=== PATIENT | female | born 1970 | race Caucasian/White ===

== ENCOUNTER 2020-07-11 09:27 | Outpatient (REF) | payer OTHER, SELFPAY ==
[2020-07-14 15:11] LABS: HPV mRNA E6/E7 rflx Not Detected (Not Detected)
== END 2020-07-11 09:28 | disposition home or self-care (01) ==
LOC: HO.LAB 09:27
PROVIDERS: PCP Internal Medicine; Visit Provider Advanced Practice Midwife
DX: Z01.419 Encounter for gynecological examination (general) (routine) without abnormal findings (principal); Z11.51 Encounter for screening for human papillomavirus (HPV); R23.2 Flushing
CPT/HCPCS: 87624; 88142

== ENCOUNTER 2022-12-25 08:00 | Outpatient (AMB) | payer OTHER, SELFPAY ==
--- NOTE | 2022-12-25 08:01 | A.OFFVIS_ITS ---
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 Scribed for KATHY Hubbard by Vianney Mike medical practice manager, on 12/25/2022 at 8:02 am, EST. Apprentice Instrument Technician: Apprentice Instrument Technician Present (Mayelin) Allergies No Known Allergies Allergy (Verified 12/25/22 08:03) Post menopausal: Yes HPI HPI Comments History of Present Illness Details She is a postmenopausal woman presenting for her annual obstetrician gynecologist examination. She is doing well with no concerns. Attempting to eat a healthy diet with calcium and vitamin D and stays active with exercise. She takes a vitamin suppliment. Currently sexually active. Confirms vaginal dryness. Denies any vaginal irritation. STI testing offered; she accepts. Last pap smear; 12/21/2021 Last mammogram; in 2021 at [facility] She reports the mammogram was normal. Colonoscopy is not UTD. Sister was recently diagnosed with breast cancer. Denies any family history of ovarian or colon cancer. 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 [facility] Surgical History Hx of wisdom tooth extraction Hx of adenoidectomy Hx of tonsillectomy Family History Maternal Grandmother Uterine cancer Maternal Aunt History of breast cancer Mother Uterine cancer Sister History of breast cancer BRCA negative Maternal Uncle Colon cancer Maternal Uncle Colon cancer Maternal Grandfather Bone cancer Cancer of kidney Social History Alcohol intake: never Patient Tobacco Use Status: Never used Tobacco Sexual orientation: Straight/Heterosexual Gender identity: Female Female Reproductive History Menstrual Age of Menarche: 13 Menopause type: natural Total pregnancies: 4 Full term: 4 Number of Living Children: 4 Date of last pap smear: 07/11/20 (neg pap and hpv) Date of Mammogram: 12/26/20 (Birad 1) Review of Systems Const All systems reviewed & are unremarkable except as noted in HPI and below Reports vaginal dryness Physical Exam Vital Signs: Last Vital Signs BP 120/80 12/25/22 08:03 BMI result Body Mass Index 26.4 Const General: cooperative, healthy appearing, no acute distress, well developed and alert Orientation/consciousness: patient oriented x3 HEENT Head: Yes normal to inspection Eyes General: appearance normal, both eyes and all related structures Neck Neck: Yes normal visual inspection Thyroid: Thyroid normal Chest Chest palpation & inspection: normal inspection of the chest Breast/axilla inspection: normal inspection of the breasts (no puckering, dimpling, peau de orange, retraction, discharge, masses) Breast/axilla palpation: normal palpation of the breasts Resp Effort & Inspection: normal respiratory effort GI Inspection: Yes normal to inspection Palpation (GI): Soft to palpation Rectal Exam - Female: deferred General: Yes bladder normal to inspection and Yes bladder normal to palpation External Female Exam: normal external appearance and normal appearance of the urethra Speculum Exam - Vagina: normal appearance of the vagina and normal palpation Speculum Exam - Cervix: normal palpation Bimanual exam- vagina & uterus: normal bimanual exam, normal palpation, uterine size normal, bladder normal to palpation and normal palpation Bimanual Exam- Adnexa, other: normal adnexae and no masses Skin General skin exam: no rashes or lesions noted Neuro General: patient oriented x3 Cognition (Neuro): normal cognition Extrem General: Yes normal to inspection Psych Attitude: cooperative Thought process: Normal thought process present Assessment & Plan Assessment & Plan (1) Encounter for annual routine gynecological examination: Code(s): Z01.419 - Encounter for gynecological examination (general) (routine) without abnormal findings Plan: Discussed: Current recommendations for pap smears per ASCCP guidelines. Breast awareness and periodic self breast exams. Encouraged yearly mammograms. I have placed an order for a mammogram. Maintaining a healthy lifestyle including a well balanced diet including Calcium and Vitamin D and routine exercise. Contact office with any PMB. Encouraged patient portal. All of her questions and concerns were addressed to the best of my ability. She will request her mammogram records from [facility] to be sent to our office. She will return in one year for AG. (2) Vaginal dryness: Code(s): N89.8 - Other specified noninflammatory disorders of vagina Plan: I educated the patient about using lubricant to aid with vaginal dryness. Orders: Orders MM tomosynthesis screening BI Today Z12.31 - Encounter for screening mammogram for malignant neoplasm of breast Coding Level of Care Code Est Pt Prev Care 40-64y(89561) Diagnoses Encounter for annual routine gynecological examination Z01.419 Vaginal dryness N89.8
[2022-12-25 08:03] VITALS: BP 120/80; BMI 26.4
== END 2022-12-25 08:41 | disposition home or self-care (01) ==
PROVIDERS: Visit Provider Advanced Practice Midwife
DX: Z01.419 Encounter for gynecological examination (general) (routine) without abnormal findings (principal); N89.8 Other specified noninflammatory disorders of vagina
CPT/HCPCS: 99396

== ENCOUNTER → 2022-12-25 08:00 | Outpatient (BNVA) | payer OTHER, SELFPAY | PROVIDERS: Visit Provider Advanced Practice Midwife ==

== ENCOUNTER 2024-01-20 08:12 | Outpatient (AMB) | payer OTHER, SELFPAY ==
--- NOTE | 2024-01-20 08:22 | A.OFFVIS_ITS ---
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 She is doing well with no concerns. Currently sexually active, uses a lubricant. Attempting to eat a healthy diet with calcium and vitamin D and stays active with exercise. Last pap smear; 2020. Last mammogram; 2023. Colonoscopy is UTD. [facility] Surgical History Hx of wisdom tooth extraction Hx of adenoidectomy Hx of tonsillectomy Family History Maternal Grandmother Uterine cancer Maternal Aunt History of breast cancer Mother Uterine cancer Sister History of breast cancer BRCA negative Maternal Uncle Colon cancer Maternal Uncle Colon cancer Maternal Grandfather Bone cancer Cancer of kidney Social History Alcohol intake: never Patient Tobacco Use Status: Never used Tobacco Sexual orientation: Straight/Heterosexual Gender identity: Female Female Reproductive History Menstrual Age of Menarche: 13 Menopause type: natural Date of menopause: 01/11/15 Total pregnancies: 4 Full term: 4 Number of Living Children: 4 History of abnormal pap smear: No History of STI: No Date of Mammogram: 11/22/22 History of abnormal mammogram: No Review of Systems Const All systems reviewed & are unremarkable except as noted in HPI and below Reports as per HPI Eyes Reports no additional complaints ENT Reports no additional complaints Card Reports no additional complaints Resp Reports no additional complaints GI Reports as per HPI and Reports no additional complaints Reports as per HPI Musc Reports no additional complaints Skin/Breast Reports as per HPI Neuro Reports no additional complaints Psych Reports no additional complaints Endo Reports no additional complaints Carmelo/Lymph Reports no additional complaints Aller/Immun Reports no additional complaints Physical Exam Vital Signs: Last Vital Signs BP 102/64 01/20/24 08:29 BMI result Body Mass Index 27.3 Const General: cooperative, healthy appearing, no acute distress, well developed and alert Orientation/consciousness: patient oriented x3 HEENT Head: Yes normal to inspection Eyes General: appearance normal, both eyes and all related structures Neck Neck: Yes normal visual inspection Thyroid: Thyroid normal Chest Chest palpation & inspection: normal inspection of the chest and other (no puckering, dimpling, peau de orange, retraction, discharge, masses) Breast/axilla inspection: normal inspection of the breasts Breast/axilla palpation: normal palpation of the breasts Resp Effort & Inspection: normal respiratory effort GI Inspection: Yes normal to inspection Palpation (GI): Soft to palpation Rectal Exam - Female: deferred General: Yes bladder normal to palpation External Female Exam: normal external appearance and normal appearance of the urethra Speculum Exam - Vagina: normal appearance of the vagina, normal palpation, normal vaginal discharge and vagina atrophic Speculum Exam - Cervix: normal appearance of the cervix and normal palpation Bimanual exam- vagina & uterus: normal bimanual exam, normal palpation, uterine size normal, bladder normal to palpation, normal palpation and non-tender Bimanual Exam- Adnexa, other: no masses Skin General skin exam: no rashes or lesions noted Rashes: no rashes Neuro General: patient oriented x3 Cognition (Neuro): normal cognition Extrem General: Yes normal to inspection Psych Attitude: cooperative Thought process: Normal thought process present Assessment & Plan Assessment & Plan (1) Encounter for annual routine gynecological examination: Code(s): Z01.419 - Encounter for gynecological examination (general) (routine) without abnormal findings Category: Medical (2) Menopausal syndrome: Code(s): N95.1 - Menopausal and female climacteric states Plan Discussed: Current recommendations for pap smears per ASCCP guidelines. Breast awareness, periodic self breast exams and yearly mammogram. Maintain a healthy lifestyle, well balanced diet including Calcium 1,200 mg and Vitamin D 600 IU daily, and routine exercise. Replens moisturizer. Contact the office with any postmenopausal bleeding. Patient verbalizes understanding and agrees to the plan of care. She was given opportunity to ask questions and all questions were answered to the best of my ability. 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 This note is constructed using voice recognition software. While every effort has been made to ensure accuracy, pharmacy specialist errors may have been included. Orders: Orders XR DEXA axial skeleton Today N95.1 - Menopausal and female climacteric states Coding Level of Care Code Est Pt Prev Care 40-64y(60996) Diagnoses Encounter for annual routine gynecological examination Z01.419 Menopausal syndrome N95.1
[2024-01-20 08:29] VITALS: BP 102/64; BMI 27.3
== END 2024-01-20 09:06 | disposition home or self-care (01) ==
PROVIDERS: PCP Internal Medicine; Visit Provider Advanced Practice Midwife
DX: Z01.419 Encounter for gynecological examination (general) (routine) without abnormal findings (principal); N95.1 Menopausal and female climacteric states
CPT/HCPCS: 99396

== ENCOUNTER 2024-02-27 08:34 | Outpatient (REF) | payer OTHER, SELFPAY ==
--- NOTE | ~2024-02-27 | MM_ITS ---
EXAMINATION: BONE DENSITOMETRY CLINICAL INDICATION: Osteopenia. COMPARISON: This is the patient's baseline examination. TECHNIQUE: Using a [employer] DXA System (software version: 13.1) manufactured by [employer], dual-energy x-ray absorptiometry was performed of the lumbar spine and left hip. The images are of good technical quality. Summary results are attached. FINDINGS: LEFT FEMUR, NECK: BMD 0.731 g/cm2, Z-score -1.2, T-score -2.2, osteopenia. LEFT FEMUR, TOTAL: BMD 0.779 g/cm2, Z-score -1.1, T-score -1.8, osteopenia. AP SPINE L1-L4: BMD 0.955 g/cm2, Z-score -1.1, T-score -1.9, osteopenia. IDENTIFIED RISK FACTORS: Early menopause, height loss, history of fracture (adult), low calcium intake, secondary osteoporosis. HISTORY OF FRACTURE: Other. MEDICATIONS: Multivitamin, vitamin D. MM/XR DEXA axial skeleton IMPRESSION: 1. DIAGNOSIS: Osteopenia based on the lowest T-score value of -2.2 in the femoral neck applying World Health Organization criteria. 2. 10-YEAR FRACTURE RISK PREDICTION, FRAX: Major osteoporotic fracture (clinical spine, forearm, hip or shoulder) 14.1%. Hip fracture 2.4%. 3. Treatment Recommendations: NOF guidelines recommend consideration for treatment in postmenopausal women and men age 50 and older presenting with the following: -A hip or vertebral (clinical or morphometric) fracture. -T-score less than or equal to -2.5 at the femoral neck or spine after appropriate evaluation to exclude secondary causes. -Low bone mass at the hip or spine and a 10-year fracture probability by FRAX of greater than or equal to 3% for hip fracture or greater than or equal to 20% for major osteoporotic fracture based on the [place] adapted WHO algorithm. 4. Other Recommendations: All treatment decisions require clinical judgment and consideration of individual patient factors, including patient preferences, comorbidities, previous drug use, risk factors not captured in the FRAX model (e.g. frailty, falls, vitamin D deficiency, increased bone turnover, interval significant decline in bone density) and possible under or overestimation of fracture risk by FRAX. Additional medical evaluation for secondary cause of low bone mineral density may be appropriate. FUTURE SCAN RECOMMENDATION: People with diagnosed cases of osteoporosis or at high risk for fracture should have regular bone mineral density tests. For patients eligible for Medicare, routine testing is allowed once every 2 years. The testing frequency can be increased to one year for patients who have rapidly progressing disease, those who are receiving or discontinuing medical therapy to restore bone mass, or have additional risk factors. Electronically signed by: Dina Gill MD 02/27/2024 02:35 PM CHARLY FORREST
== END 2024-02-27 08:35 | disposition home or self-care (01) ==
LOC: HO.MAMMO 08:34
PROVIDERS: Visit Provider Advanced Practice Midwife
DX: Z13.820 Encounter for screening for osteoporosis (principal); Z78.0 Asymptomatic menopausal state
CPT/HCPCS: 77080

== ENCOUNTER 2024-06-15 10:19 | Outpatient (AMB) | payer OTHER, SELFPAY ==
--- NOTE | 2024-06-15 10:20 | A.OFFVIS_ITS ---
Intake Visit Reasons: TV DEXA results/phone call only ok per Stephanie Intake Note: cell #[phone] Allergies lactose Allergy (Unknown, Verified 06/15/24 10:31) Unknown HPI Comments Details: Tele Health Visit Total time I personally spent on visit and management today: 16 minutes. Time spent included review of pertinent office notes in the electronic health record; review of laboratory and imaging results; review of personal family medical history; discussing diagnosis and plan of care with the patient; documenting the encounter in the EMR. Patient presents to discuss: DEXA scan results. Family history of osteoporosis. Lactose intolerant, has some calcium in the diet. Takes daily vitamin-D PFSH Medical History (Updated 06/15/24 @ 11:01 by Stephanie Platt CNM) Osteopenia Surgical History Hx of wisdom tooth extraction Hx of adenoidectomy Hx of tonsillectomy Family History Maternal Grandmother Uterine cancer Maternal Aunt History of breast cancer Mother Uterine cancer Sister History of breast cancer BRCA negative Maternal Uncle Colon cancer Maternal Uncle Colon cancer Maternal Grandfather Bone cancer Cancer of kidney Social History Alcohol intake: never Patient Tobacco Use Status: Never used Tobacco Sexual orientation: Straight/Heterosexual Gender identity: Female Female Reproductive History Menstrual Age of Menarche: 13 Date of menopause: 01/11/15 Telehealth Telehealth Telehealth Platform: Telephone Location of provider rendering services: practice address Location of patient: other Patient Identification confirmed using: Name, : Yes Telehealth method: voice only Patient verbally consented to treatment: Yes Patient verbally consented to billing insurance company: Yes Patient informed of any privacy concerns related to visit: Yes Results Reviewed Results Reviewed: [place] [facility] [address] [place] [address] Mammography Report Signed Patient: Sal Sampson MR#: [id number] : 1970 Acct:[id number] Age/Sex: 53 / F ADM Date: 02/27/24 Loc: [facility] Attending Dr: Stephanie Platt CNM Ordering Physician: Stephanie Platt CNM Results: Date of Service: 02/27/24 Follow Up: Procedure(s): XR DEXA axial skeleton Accession Number(s): [id number] cc: Platt,Stephanie TYSON~ EXAMINATION: BONE DENSITOMETRY CLINICAL INDICATION: Osteopenia. COMPARISON: This is the patient's baseline examination. TECHNIQUE: Using a [employer] DXA System (software version: 13.1) manufactured by [employer], dual-energy x-ray absorptiometry was performed of the lumbar spine and left hip. The images are of good technical quality. Summary results are attached. FINDINGS: LEFT FEMUR, NECK: BMD 0.731 g/cm2, Z-score -1.2, T-score -2.2, osteopenia. LEFT FEMUR, TOTAL: BMD 0.779 g/cm2, Z-score -1.1, T-score -1.8, osteopenia. AP SPINE L1-L4: BMD 0.955 g/cm2, Z-score -1.1, T-score -1.9, osteopenia. IDENTIFIED RISK FACTORS: Early menopause, height loss, history of fracture (adult), low calcium intake, secondary osteoporosis. HISTORY OF FRACTURE: Other. MEDICATIONS: Multivitamin, vitamin D. MM/XR DEXA axial skeleton IMPRESSION: 1. DIAGNOSIS: Osteopenia based on the lowest T-score value of -2.2 in the femoral neck applying World Health Organization criteria. 2. 10-YEAR FRACTURE RISK PREDICTION, FRAX: Major osteoporotic fracture (clinical spine, forearm, hip or shoulder) 14.1%. Hip fracture 2.4%. 3. Treatment Recommendations: NOF guidelines recommend consideration for treatment in postmenopausal women and men age 50 and older presenting with the following: -A hip or vertebral (clinical or morphometric) fracture. -T-score less than or equal to -2.5 at the femoral neck or spine after appropriate evaluation to exclude secondary causes. -Low bone mass at the hip or spine and a 10-year fracture probability by FRAX of greater than or equal to 3% for hip fracture or greater than or equal to 20% for major osteoporotic fracture based on the [place] adapted WHO algorithm. 4. Other Recommendations: All treatment decisions require clinical judgment and consideration of individual patient factors, including patient preferences, comorbidities, previous drug use, risk factors not captured in the FRAX model (e.g. frailty, falls, vitamin D deficiency, increased bone turnover, interval significant decline in bone density) and possible under or overestimation of fracture risk by FRAX. Additional medical evaluation for secondary cause of low bone mineral density may be appropriate. FUTURE SCAN RECOMMENDATION: People with diagnosed cases of osteoporosis or at high risk for fracture should have regular bone mineral density tests. For patients eligible for Medicare, routine testing is allowed once every 2 years. The testing frequency can be increased to one year for patients who have rapidly progressing disease, those who are receiving or discontinuing medical therapy to restore bone mass, or have additional risk factors. Electronically signed by: Dina Gill MD 02/27/2024 02:35 PM EST RP Dictated By: Dina Gill MD Signed By: <Electronically signed by Dina Gill MD in OV> 02/27/24 1435 DD/ 0845 TD/TT: 02/27/24 0915 School Health Assistant: Assessment & Plan Assessment & Plan (1) Osteopenia: Code(s): M85.80 - Other specified disorders of bone density and structure, unspecified site Category: Medical Qualifiers: Osteopenia location: femoral neck Plan Discussed: IMPRESSION: 1. DIAGNOSIS: Osteopenia based on the lowest T-score value of -2.2 in the femoral neck applying World Health Organization criteria. Calcium and vitamin-D and weight-bearing exercise recommendations reviewed. Calcium diet food list and osteoporosis/osteopenia information sheet to be mailed to her home. The patient expressed understanding and agreement with the plan of care. All of her questions and concerns were addressed to the best of my ability. This note is constructed using voice recognition software. While every effort has been made to ensure accuracy, whizzer hand errors may have been included. Coding Level of Care Code Tele Est Pt Level 3 (39246) Diagnoses Osteopenia M85.80 Osteopenia location: femoral neck
--- OUTSIDE RECORDS SUMMARY | 2024-06-15 12:22 | XMS_ITS | Clinical Summary ---
Author Organization [address] Address [address] [place] [address] Phone Care Team Providers Care Wood Tool Maker Name Role Phone Marcy Kat MD Primary Care Provider [phone] Allergies No known active allergies Medications cholecalciferol (VITAMIN D-3) 25 mcg (1,000 unit) tablet Take by mouth daily. Active multivit-min/iron /folic acid/K (ADULTS MULTIVITAMIN ORAL) Take by mouth daily. Active simethicone (MYLICON,GAS-X) 180 mg capsule Take by mouth as needed. Active Active Problems Problem Noted Date Diagnosed Date Anxiety disorder 05/03/2014 Shoulder pain 01/10/2014 Pituitary adenoma ([facility] V24, [facility] V28) 12/2013 Overview (02/06/2024): 3mm in 2013. Hemorrhoids 03/09/2012 Vitamin D deficiency 02/06/2011 Encounters Date Type Department Care Team Description 06/03/2024 5:16 PM EDT - 06/03/2024 11:59 PM EDT Hospital Encounter Radiology Department - [address] [phone] Encounter for screening mammogram for breast cancer Discharge Disposition: Home or Self Care from Last 3 Months Immunizations Name Administration Dates Next Due H1N1 Inj Preservative Free 12/27/2008 Influenza Quadravalent, MDCK , 0.5ml, preservative free (Flucelvax) 6mo and older 01/18/2019 Influenza trivalent, with pr eservative (Fluzone; Afluria) 6mo and older 01/10/2014,03/30/2013,11/18/2008 Moderna SARS-CoV-2 COVID-19, mRNA, LNP-S, preservative free 05/04/2020,04/06/2020 Tdap Tetanus diptheria acell ular pertussis (Boostrix; Adacel) 7yo and older 01/18/2019,01/16/2009 Surgical History Surgery Date Site/Laterality Comments WISDOM TOOTH EXTRACTION PROCEDURE: HISTORICAL WISDOM TEETH EXTRACTION TONSILLECTOMY PROCEDURE: HISTORICAL TONSILLECTOMY HEMORRHOID SURGERY PROCEDURE: KS INCISION THROMBOSED HEMORRHOID EXTERNAL; COMMENT: thrombosed Medical History Medical History Date Comments Hemorrhoid DX:Hemorrhoid Family History Medical History Relation Name Comments No Known Problems Daughter Other: renal cancer Father Other: kidney ca Maternal Grandfather Breast cancer Maternal Grandmother Breast cancer Mother also either ov indy or uterine, pt not sure Colon cancer Mother passed at 55 Other: bone cancer Mother unknown o rigin Breast cancer Other 1 mat aunt x 2, one under 50 Rheum arthritis Other 2 Other: bone cancer Other 3 great aun t No Known Problems Other 4 No Known Problems Paternal Grandfather No Known Problems Paternal Grandmother No Known Problems Sister 1 Breast cancer Sister 2 59 Colon cancer Uncle Relation Name Status Comments Daughter Father (Age 81) CVA, RA, b one cancer Maternal Grandfather (Age 93) Maternal Grandmother Mother Angina, Spinabi fida, Metastatic cancer with unknown primary Other 1 Other 2 Other 3 Other 4 Paternal Grandfather Paternal Grandmother Alzheim ers Sister 1 Alive fibromyalgia Sister 2 59 Alive hypothyroid, HT N Uncle Social History Tobacco Use Types Packs/Day Years Used Date Smoking Tobacco: Never Smokeless Tobacco: Never Alcohol Use Standard Drinks/Week Comments No 0 (1 standard drink = 0.6 oz pur e alcohol) Comments No Sex and Gender Information Value Date Recorded Sex Assigned at Not on file Legal Sex Female 11:01 AM EST Gender Identity Not on file Sexual Orientation Not on file Obstetrics History Para Term AB IAB SAB Ectopic Multiple Livin g Live Births 4 4 4 4 Date Outcome GA Total Labor Labor/2nd/3rd Weight Sex Type Anes PTL Tisha A1 A5 Name Clin Term Term Term Term Last Filed Vital Signs Vital Sign Reading Time Taken Comments Blood Pressure 108/68 04/10/2023 8:39 AM EST Pulse 78 04/10/2023 8:39 AM EST Temperature - - Respiratory Rate - - Oxygen Saturation - - Inhaled Oxygen Concentration - - Weight 64.8 kg (142 lb 12.8 oz) 04/10/2023 8:39 AM EST Height 152.4 cm (5') 04/10/2023 8:39 AM EST Body Mass Index 27.89 04/10/2023 8:39 AM EST Plan of Treatment Upcoming Encounters Date Type Department Care Team (Late st Contact Info) Description 11/19/2024 9:30 AM EDT Office Visit Adult Medicine [facility] [address] [place] [phone] Marcy Kat MD [address] [place] [id number] Health Maintenance Due Date Last Done Comments Hepatitis B Vaccines (1 of 3 - 19+ 3-dose series) 1989 Pneumococcal Vaccine: 50+ Years (1 of 1 - PCV) 2020 Zoster Vaccines (1 of 2) 2020 Colorectal Cancer Screening: Colonoscopy 01/29/2022 Depression Screening 01/29/2022 Hepatitis C Screening 01/29/2022 Social Influencers of Health Screening 01/29/2022 COVID-19 Vaccine ( season) 2023 04/05/2021, 05/04/2020, 04/06/2020 Influenza Vaccine (Season Ended) 2024 01/18/2019, 01/10/2014, 03/30/2013, Additional history exists Cervical Cancer Screening: HPV 07/03/2025 07/03/2020 Breast Cancer Screening 06/03/2026 06/04/19, 04/29/2023, 04/29/2023, Additional history exists Cholesterol Screening (Lipid Panel) 04/10/2028 04/10/2023 DTaP,Tdap,and Td Vaccines (3 - Td or Tdap) 01/18/2029 01/18/2019, 01/16/2009 HIV Screening Completed 06/13/2008 HIB Vaccines Aged Out No longer eligi ble based on patient's age to complete this topic HPV Vaccines Aged Out No longer eligi ble based on patient's age to complete this topic Hepatitis A Vaccines Aged Out No long er eligible based on patient's age to complete this topic IPV Vaccines Aged Out No longer eligi ble based on patient's age to complete this topic MMR Vaccines Aged Out No longer eligi ble based on patient's age to complete this topic Meningococcal ACWY Vaccine Aged Out N o longer eligible based on patient's age to complete this topic Meningococcal B Vaccine Aged Out No l onger eligible based on patient's age to complete this topic Pneumococcal Vaccine: Pediatrics (0 to 5 Years) and At-Risk Patients (6 to 64 Years) Aged Out No longer eligible based on patient's age to complete this topic RSV Immunization Patients Under 20 months Aged Out No longer eligible based on patient's age to complete this topic Varicella Vaccines Aged Out No longer eligible based on patient's age to complete this topic Procedures Procedure Name Priority Date/Time Associated Diagnosis Comments MG MAMMO DIGITAL SCREENING W YOAN BILAT Routine 06/03/2024 5:28 PM EDT Encounter for screening mammogram for breast cancer LIPID PANEL Routine 04/10/2023 HPV Routine 07/03/2020 HIV SCREENING Routine 06/13/2008 from Last 3 Months or Most Recently Relevant to Health Maintenance Results * MG Mammo Digital Screening w Yoan bilat (06/03/2024 5:28 PM EDT) Anatomical Region Laterality Modality Breast Bilateral Mammography 06/04/2024 4:24 PM EDT Impressions 06/04/2024 4:36 PM EDT 1. No mammographic evidence of malignancy 2. Scattered fibroglandular tissue BI-RADS CATEGORY: 2 - BENIGN RECOMMENDATION: Screening bilateral mammogram is recommended in 1 year. Mammo Location: [facility], [address] [place] [address], [phone], . -------- FINAL REPORT -------- Dictated By: Casimiro Winston Dictated Date: 06/04/2024 16:24 ET Assigned Physician: Casimiro Winston Reviewed and Electronically Signed By: Casimiro Winston Signed Date: 06/04/2024 16:36 ET Workstation ID: [id number] Transcribed By: Self Edit Transcribed Date: 06/04/2024 16:24 ET Narrative 06/04/2024 4:36 PM EDT A BILATERAL DIGITAL 3D SCREENING MAMMOGRAPHY HISTORY: Routine screening. ??Family history of breast cancer in sister. COMPARISON: Multiple priors dating back to 12/17/2019 Technique: Bilateral full field digital mammography (3D) was performed using standard CC and MLO projections CAD ??was used to evaluate this mammogram. FINDINGS: Right: No suspicious masses, groups of microcalcification or areas of architectural distortion identified. Stable typically benign parenchymal asymmetries. Left: No suspicious masses, groups of microcalcification or areas of architectural distortion identified. Stable typically benign parenchymal asymmetries. BREAST DENSITY: B - There are scattered areas of fibroglandular density. Procedure Note Casimiro Winston MD - 06/04/2024 A BILATERAL DIGITAL 3D SCREENING MAMMOGRAPHY HISTORY: Routine screening. Family history of breast cancer in sister. COMPARISON: Multiple priors dating back to 12/17/2019 Technique: Bilateral full field digital mammography (3D) was performedusing standard CC and MLO projections CAD was used to evaluate this mammogram. FINDINGS: Right: No suspicious masses, groups of microcalcification or areas ofarchitectural distortion identified. Stable typically benign parenchymalasymmetries. Left: No suspicious masses, groups of microcalcification or areas ofarchitectural distortion identified. Stable typically benign parenchymalasymmetries. BREAST DENSITY: B - There are scattered areas of fibroglandular density. IMPRESSION: 1. No mammographic evidence of malignancy 2. Scattered fibroglandular tissue BI-RADS CATEGORY: 2 - BENIGN RECOMMENDATION: Screening bilateral mammogram is recommended in 1 year. Mammo Location: [facility], [address] [place] [address], [phone], . -------- FINAL REPORT -------- Dictated By: Casimiro Winston Dictated Date: 06/04/2024 16:24 ET Assigned Physician: Casimiro Winston Reviewed and Electronically Signed By: Casimiro Winston Signed Date: 06/04/2024 16:36 ET Workstation ID: [id number] Transcribed By: Self Edit Transcribed Date: 06/04/2024 16:24 ET Marcy Kat MD IMG BI PROCEDURES Final Result * Lipid panel (04/10/2023) Pathologist [facility] LDL/HDL Ratio 3 0 - 4 Triglycerides 100 0 - 150 mg/dL Cholesterol 175 0 - 200 mg/dL HDL 67 >=40 mg/dL LDL Cholesterol 88 0 - 100 mg/dL Blood Venous blood specimen / Unknown Result [facility] Historical Provider LAB BLOOD ORDERABLES Namita l Result * Cervical Cancer Screening: HPV (07/03/2020) [facility] Cervical Cancer Screening: HPV Negative, Abstracted Historical Provider HEALTH MAINTENANCE Final Result * HIV Screening (06/13/2008) [facility] HIV Screening Abstracted Historical Provider HEALTH MAINTENANCE Final Result from Last 3 Months or Most Recently Relevant to Health Maintenance Insurance [facility] Care Teams Wood Tool Maker Relationship Specialty Start Date End Date Marcy Kat MD [facility] - General 11/22/22
--- OUTSIDE RECORDS SUMMARY | 2024-06-15 12:22 | XMS_ITS | Patient Health Record ---
Author Organization [facility] Address [address] [place] [address] Care Team Providers Care Pet Food Deboner Name Role Phone Ileana PERSAUD, Svitlana Chavis Primary Care Provider Lilliam Pritchett Unavailable [phone] Allergies No Known Allergies Reason For Referral No Information Medications Medication SIG (Take, Route, Frequency, Duration) Notes Start Date End Date Status Colace 100 MG 1 capsule as needed Orally Once a day for 30 day(s) Active Vitamin D3 Active Multivitamin Active Social History Tobacco Use: Social History Observation Description Date Details (start date - stop date) Never Smoker NA - NA Tobacco Use/Smoking Question Answer Notes Are you a: nonsmoker Additional Findings: Tobacco Non-User Current no n-smoker Alcohol Screen Question Answer Notes Did you have a drink containing alcohol in the p ast year? No Points 0 Interpretation Negative Tobacco use other than smoking: Question Answer Notes Are you an other tobacco user? No Problems Problem Type SNOMED Code ICD Code Onset Dates Problem Status W/U Status Risk Notes Problem [id number] Hallux valgus (acquired), left foot (M20.12) Active confirmed Problem [id number] Hallux valgus (acquired), right foot (M20.11) Active confirmed Plan Of Treatment No Information Insurance Providers Payer Name Payer Address Payer Phone Subscriber Number Group Number Insured Name Patient Relationship to Insured Coverage Start Date Coverage End Date [employer] ([employer]) [address] [place] [phone] [id number] Self - patient is the insured Medical (General) History Medical History History ICD Code Chicken pox Surgical History Surgery Date(Month/Year) tonsillectomy and adenoidectomy 1974 wisdom teeth extraction 1994
== END 2024-06-15 12:41 | disposition home or self-care (01) ==
LOC: HO.HWS 10:19
PROVIDERS: PCP Internal Medicine; Visit Provider Advanced Practice Midwife
DX: M85.80 Other specified disorders of bone density and structure, unspecified site (principal)
CPT/HCPCS: 98013

== ENCOUNTER → 2024-06-15 10:19 | Outpatient (BNVA) | payer OTHER, SELFPAY | PROVIDERS: PCP Internal Medicine; Visit Provider Advanced Practice Midwife ==

== ENCOUNTER 2025-01-25 08:01 | Outpatient (AMB) | payer OTHER, SELFPAY ==
--- NOTE | 2025-01-25 08:03 | MHC.OFFVIS ---
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 Quick Technician concerns: menopaual >10yrs., has fatigue, decreased libido. Currently sexually active, admits to dryness use of the lubricant. Attempting to eat a healthy diet with calcium and vitamin D and stays active with exercise-and PT currently for hip pain. Last pap smear; 2020, negative. Last mammogram; 2023. Colonoscopy is UTD. Family history of breast cancer, sister-BRCA negative. PFSH Medical History Osteopenia Surgical History Hx of wisdom tooth extraction Hx of adenoidectomy Hx of tonsillectomy Family History Maternal Grandmother Uterine cancer Maternal Aunt History of breast cancer Mother Uterine cancer Sister History of breast cancer BRCA negative Maternal Uncle Colon cancer Maternal Uncle Colon cancer Maternal Grandfather Bone cancer Cancer of kidney Social History Household Members: Spouse and Children Alcohol intake: never Patient Tobacco Use Status: Never used Tobacco Current occupation: [employer] N[employer]SE-[employer] Sexual orientation: Straight/Heterosexual Gender identity: Female Female Reproductive History Menstrual Age of Menarche: 13 Date of menopause: 01/11/15 Review of Systems Const All systems reviewed & are unremarkable except as noted in HPI and below Reports as per HPI Eyes Reports no additional complaints ENT Reports no additional complaints Card Reports no additional complaints Resp Reports no additional complaints GI Reports as per HPI and Reports no additional complaints Reports as per HPI Musc Reports no additional complaints Skin/Breast Reports as per HPI Neuro Reports no additional complaints Psych Reports no additional complaints Endo Reports no additional complaints Carmelo/Lymph Reports no additional complaints Aller/Immun Reports no additional complaints Physical Exam Vital Signs: Last Vital Signs BP 100/60 01/25/25 08:04 BMI result Body Mass Index 28.3 Const General: cooperative, healthy appearing, no acute distress, well developed and alert Orientation/consciousness: patient oriented x3 HEENT Head: Yes normal to inspection Eyes General: appearance normal, both eyes and all related structures Neck Neck: Yes normal visual inspection Thyroid: Thyroid normal Chest Chest palpation & inspection: normal inspection of the chest and other (no puckering, dimpling, peau de orange, retraction, discharge, masses) Breast/axilla inspection: normal inspection of the breasts Breast/axilla palpation: normal palpation of the breasts Resp Effort & Inspection: normal respiratory effort GI Inspection: Yes normal to inspection Palpation (GI): Soft to palpation Rectal Exam - Female: deferred General: Yes bladder normal to palpation External Female Exam: normal external appearance and normal appearance of the urethra Speculum Exam - Vagina: normal appearance of the vagina, normal palpation, normal vaginal discharge and vagina atrophic Speculum Exam - Cervix: normal appearance of the cervix and normal palpation Bimanual exam- vagina & uterus: normal bimanual exam, normal palpation, uterine size normal, bladder normal to palpation, normal palpation and non-tender Bimanual Exam- Adnexa, other: no masses Skin General skin exam: no rashes or lesions noted Rashes: no rashes Neuro General: patient oriented x3 Cognition (Neuro): normal cognition Extrem General: Yes normal to inspection Psych Attitude: cooperative Thought process: Normal thought process present Assessment & Plan Assessment & Plan (1) Encounter for annual routine gynecological examination: Code(s): Z01.419 - Encounter for gynecological examination (general) (routine) without abnormal findings Category: Medical Plan Discussed: Current recommendations for pap smears per ASCCP guidelines. Breast awareness, periodic self breast exams and yearly mammogram. Maintain a healthy lifestyle, well balanced diet including Calcium 1,200 mg and Vitamin D 600 IU daily, and routine exercise. Use a Replens moisturizer, reviewed website information on other options for dryness treatment and further menopausal resources. Follow up PRN. Contact the office with any postmenopausal bleeding. Consider BRCA testing, patient to call back if wants a referral. Patient verbalizes understanding and agrees to the plan of care. She was given opportunity to ask questions and all questions were answered to the best of my ability. 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 This note is constructed using voice recognition software. While every effort has been made to ensure accuracy, nurse first aid errors may have been included. Coding Level of Care Code Est Pt Prev Care 40-64y(35988) Diagnoses Encounter for annual routine gynecological examination Z01.419
[2025-01-25 08:04] VITALS: BP 100/60; BMI 28.3
--- OUTSIDE RECORDS SUMMARY | 2025-01-25 08:15 | XMS_ITS | Clinical Summary ---
Author Organization [facility] [address] [place] [address] [place] [address] Phone Care Team Providers Care Cue Worker Name Role Phone Marcy Kat MD Primary Care Provider Allergies No known active allergies Medications cholecalciferol (VITAMIN D-3) 25 mcg (1,000 unit) tablet Take by mouth daily. Active multivit-min/iron /folic acid/K (ADULTS MULTIVITAMIN ORAL) Take by mouth daily. Active simethicone (MYLICON,GAS-X) 180 mg capsule Take by mouth as needed. Active Active Problems Problem Noted Date Diagnosed Date Family history of breast cancer 11/19/2024 Assessment & Plan (11/19/2024 10:44 AM EDT): Family history of breast qsufji-lx-ei-date with screening mammograms, she has been offered genetic testing in the past but has declined. I discussed with patient regardin additional screening with breast MRIs, patient declines today, would like to think on it some more and discuss with her [employer] provider as well. Anxiety disorder 05/03/2014 Shoulder pain 01/10/2014 Pituitary adenoma ([facility] V24, [facility] V28) 12/2013 Overview (02/06/2024): 3mm in 2012. Hemorrhoids 03/09/2012 Vitamin D deficiency 02/06/2011 Encounters Date Type Department Care Team Description 11/19/2024 9:30 AM EDT Office Visit Adult Medicine [facility] [address] [place] [address] Marcy Kat MD PE (physical exam), annual (Primary Dx); Trochanteric bursitis of right hip; Family history of breast cancer from Last 3 Months Immunizations Immunization Administration Dates Next Due H1N1 Inj Preservative [...] TONSILLECTOMY PROCEDURE: HISTORICAL TONSILLECTOMY HEMORRHOID SURGERY PROCEDURE: MA INCISION THROMBOSED HEMORRHOID EXTERNAL; COMMENT: thrombosed Medical History Medical History Date Comments Hemorrhoid DX:Hemorrhoid Family History Medical History Relation Name Comments No Known Problems Daughter Other: renal cancer Father Other: kidney ca Maternal Grandfather Breast cancer Maternal Grandmother Colon cancer Mother passed at 55 Other: bone cancer Mother unknown o rigin Ovarian cancer Mother also either o vary or uterine, pt not sure Colon cancer Mother's Brother 1 Colon cancer Mother's Brother 2 Breast cancer Other 1 mat aunt x [...] Spinabi fida, Metastatic cancer with unknown primary Mother's Brother 1 Mother's Brother 2 Alive Other 1 Other 2 Other 3 Other 4 Paternal Grandfather Paternal Grandmother Alzheim ers Sister 1 Alive fibromyalgia Sister 2 59 Alive hypothyroid, HT N Uncle Social History Tobacco Use Types Packs/Day Years Used Date Smoking Tobacco: Never Smokeless Tobacco: Never Tobacco Cessation:Counseling Given: Not Answered Alcohol Use Standard Drinks/Week Comments No 0 (1 standard drink = 0.6 oz pur e alcohol) Housing Instability Answer Date Recorde d Are you worried that in the next 2 months you may not have stable housing? No 11/19/2024 Food Access & Nutrition Answer Date Rec orded Do you have access to a vari ety of food including fruits and vegetables? Yes 11/19/2024 Health Literacy Answer Date Recorded How often do you need to hav e someone help you when you read instructions, pamphlets, or other written material from your doctor or pharmacy? Never 11/19/2024 Caregiver: How often do you need to have someone help you when you read instructions, pamphlets, or other written material from your doctor or pharmacy? Not on file 11/19/2024 Financial Risk Answer Date Recorded How hard is it for you to pa y for the very basics like food, housing, medical care, and air conditioning / heating? Not very hard 11/19/2024 Transportation Answer Date Recorded Has the lack of transportati on kept you from meetings, work, or from getting things needed for daily living? No Has the lack of transportati on kept you from medical appointments or from getting medications? No 11/19/2024 Social Isolation Answer Date Recorded How often do you feel lonely or isolated from th ose around you? Never 11/19/2024 Food Risk Answer Date Recorded Within the past 12 months we worried whether our food would run out before we got money to buy more. Never true 11/19/2024 Within the past 12 months th e food we bought just didn't last and we didn't have money to get more. Never true 11/19/2024 Dependent Care Answer Date Recorded Do you need help finding or paying for care for your loved ones. For example, salesperson children's shoes or elderly care for an older adult? No 11/19/2024 Education Answer Date Recorded Do you think completing more education or training, like finishing a GED, going to college, or learning a trade, would be helpful for you? No 11/19/2024 Employment and Income Answer Date Recor ded During the last four weeks, have you been actively looking for work? No 11/19/2024 Living Situation Answer Date Recorded What is your living situation? Unrecognized valu e 11/19/2024 Comments No Sex and Gender Information Value [...] Sign Reading Time Taken Comments Blood Pressure 105/67 11/19/2024 9:14 AM EDT Pulse 87 11/19/2024 9:14 AM EDT Temperature 36.8 C (98.2 F) 11/19/2024 9:14 AM EDT Respiratory Rate 15 11/19/2024 9:14 AM EDT Oxygen Saturation 97% 11/19/2024 9:14 AM EDT Inhaled Oxygen Concentration - - Weight 62.6 kg (138 lb) 11/19/2024 9:14 AM EDT Height 152.4 cm (5') 11/19/2024 9:14 AM EDT Body Mass Index 26.95 11/19/2024 9:14 AM EDT Plan of Treatment Upcoming Encounters Date Type Department Care Team (Late st Contact Info) Description 02/15/2025 11:45 AM EST Office Visit Adult Medicine [address] [phone] Marcy Kat MD [address] [place] [address] 06/07/2025 4:30 PM EDT Appointment Radiology Department - [address] [phone] 11/23/2025 9:30 AM EDT Office Visit Adult Medicine [address] [phone] Marcy Kat MD [address] [place] [address] Health Maintenance Due Date Last Done Comments Hepatitis B Vaccines (1 of 3 - 19+ 3-dose series) 1989 Pneumococcal Vaccine: 50+ Years (1 of 1 - PCV) 2020 Zoster Vaccines (1 of 2) 2020 Hepatitis C Screening 01/29/2022 COVID-19 Vaccine (4 - season) 2024 04/05/2021, 05/04/2020, 04/06/2020 Cervical Cancer Screening: HPV 07/03/2025 07/03/2020 Influenza Vaccine (#1) 2025 9, 01/10/2014, 03/30/2013, Additional history exists Postponed from 11/01/2024 (Patient Refused) Social Influencers of Health Screening 11/19/2025 11/19/2024 Breast Cancer Screening 06/03/2026 06/04/19, 04/29/2023, 04/29/2023, Additional history exists DTaP,Tdap,and Td Vaccines (3 - Td or Tdap) 01/18/2029 01/18/2019, 01/16/2009 Cholesterol Screening (Lipid Panel) 11/19/2029 11/19/2024, 04/10/2023 Colorectal Cancer Screening: Colonoscopy 11/12/2033 11/13/2023, 11/13/2023 RSV Immunization Adult Patients (1 - 1-dose 75+ series) 2045 HIV Screening Completed 06/13/2008 Depression Screening Completed 11/19/2024 HIB Vaccines Aged Out No longer eligi [...] Procedure Name Priority Date/Time Associated Diagnosis Comments CBC WITH AUTO DIFFERENTIAL Routine 11/19/2024 10:48 AM EDT PE (physical exam), annual LIPID PANEL WITH REFLEX TO DIRECT LDL Routine 11/19/2024 10:48 AM EDT PE (physical exam), annual COMPREHENSIVE METABOLIC PANEL Routine 11/19/2024 10:48 AM EDT PE (physical exam), annual CBC AND DIFFERENTIAL Routine 11/19/2024 10:48 AM EDT PE (physical exam), annual THYROID STIMULATING HORMONE WITH REFLEX TO FREE T4 AND FREE T3 Routine 11/19/2024 10:48 AM EDT PE (physical exam), annual VITAMIN D 25 HYDROXY Routine 11/19/2024 10:48 AM EDT PE (physical exam), annual MG MAMMO DIGITAL SCREENING W YOAN BILAT Routine 06/03/2024 5:28 PM EDT Encounter for screening mammogram for breast cancer EXTERNAL COLONOSCOPY REPORT Routine 11/13/2023 10:30 AM EDT HPV Routine 07/03/2020 HIV SCREENING Routine 06/13/2008 from Last 3 Months or Most Recently Relevant to Health Maintenance Results * Thyroid stimulating hormone with reflex to free t4 and free t3 (11/19/2024 10:48 AM EDT) TSH 2.17 0.40 - 4.00 mcIU/mL LAB CHEMISTRY METHOD 11/19/2024 4:48 PM EDT [facility] Blood Venous blood specimen / Unknown Venipuncture / Unknown 11/19/2024 10:48 AM EDT 11/19/2024 10:48 AM EDT Marcy Kat MD LAB BLOOD ORDERABLES Final Resul t Performing Organization Address [facility]/ZIP Co de Phone Number [facility] [address] [place] [address], [place] [phone] * Lipid panel with reflex to direct LDL (11/19/2024 10:48 AM EDT) Cholesterol 151 0 - 200 mg/dL LAB CHEMISTRY METHOD 11/19/2024 4:16 PM EDT [facility] Triglycerides 68 0 - 150 mg/dL LAB CHEMISTRY METHOD 11/19/2024 4:16 PM EDT [facility] HDL 66 >=40 mg/dL LAB CHEMISTRY METHOD 11/19/2024 4:16 PM EDT [facility] LDL Calculated 71 0 - 100 mg/dL LAB CHEMISTRY METHOD 11/19/2024 4:16 PM EDT [facility] Comment:Estimated LDL Calcul ated using equation: Total cholesterol - HDL cholesterol - (Triglycerides/5) VLDL Cholesterol Roman 13.6 mg/dL LAB CHEMISTRY METHOD 11/19/2024 4:16 PM EDT [facility] Non HDL Chol. (LDL+VLDL) 85 <145 mg/dL LAB CHEMISTRY METHOD 11/19/2024 4:16 PM EDT [facility] Chol/HDL Ratio 2.3 0.0 - 4.4 LAB CHEMISTRY METHOD 11/19/2024 4:16 PM EDT [facility] Blood Venous blood specimen / Unknown Venipuncture / Unknown 11/19/2024 10:48 AM EDT 11/19/2024 10:48 AM EDT us Marcy Kat MD LAB BLOOD ORDERABLES Final Resul t [facility] [address] [place] [address], [place] [phone] * (ABNORMAL) CBC auto differential (11/19/2024 10:48 AM EDT) [facility] WBC 5.7 4.8 - 10.8 K/mcL LAB HEMETOLOGY METHOD 11/19/2024 12:19 PM EDT [facility] RBC 4.80 3.80 - 4.80 M/mcL LAB HEMETOLOGY METHOD [facility]19[facility]24 [facility] Hemoglobin 13.3 11.5 - 16.0 g/dL LAB HEMETOLOGY METHOD 11/19/2024 12:19 PM EDT [facility] Hematocrit 42.6 35.0 - 47.0 % LAB HEMETOLOGY METHOD 11/19/2024 12[facility] MCV 88.4 79.0 - 98.0 FL LAB HEMETOLOGY METHOD 11/19/2024 12:[facility] MCH 27.6 27.0 - 32.0 pcg LAB HEMETOLOGY METHOD 11/19/2024 12:19 PM [facility] MCHC 31.2(L) 32.0 - 37.0 g/dL LAB HEMETOLOGY METHOD 11/19/2024 12:19 PM [facility] RDW 13.1 11.0 - 15.0 % LAB HEMETOLOGY METHOD 11/19/2024 12:[facility] Platelets 174 130 - 400 K/mcL LAB HEMETOLOGY METHOD 11/19/2024 12:19 PM [facility] MPV 11.4(H) 7.0 - 11.0 FL LAB HEMETOLOGY METHOD 11/19/2024 12:[facility] NRBC 0.0 <1.0 % LAB HEMETOLOGY METHOD 11/19/2024 12:[facility] NRBC Absolute 0.00 <0.10 K/mcL LAB HEMETOLOGY METHOD 11/19/2024 12:19 PM [facility] Neutrophils Relative 57.5 % LAB HEMETOLOGY METHOD 11/19/2024 12:19 PM [facility] Lymphocytes Relative 31.1 % LAB HEMETOLOGY METHOD 11/19/2024 12:19 PM [facility] Monocytes Relative 7.9 % LAB HEMETOLOGY METHOD 11/19/2024 12:19 PM [facility] Eosinophils Relative 2.6 % LAB HEMETOLOGY METHOD 11/19/2024 12:19 PM [facility] Basophils Relative 0.5 % LAB HEMETOLOGY METHOD 11/19/2024 12:19 PM [facility] Immature Granulocytes Relative 0.4 % LAB HEMETOLOGY METHOD 11/19/2024 12:19 PM [facility] Neutrophils Absolute 3.27 1.50 - 7.00 K/mcL LAB HEMETOLOGY METHOD 11/19/2024 12:19 PM [facility] Lymphocytes Absolute 1.77 1.00 - 5.00 K/mcL LAB HEMETOLOGY METHOD 11/19/2024 12:19 PM [facility] Monocytes Absolute 0.45 0.20 - 1.00 K/mcL LAB HEMETOLOGY METHOD 11/19/2024 12:19 PM [facility] Eosinophils Absolute 0.15 0.00 - 0.50 K/mcL LAB HEMETOLOGY METHOD 11/19/2024 12:19 PM [facility] Basophils Absolute 0.03 0.00 - 0.20 K/mcL LAB HEMETOLOGY METHOD 11/19/2024 12:19 PM [facility] Immature Granulocytes Absolute 0.02 0.00 - 0.03 K/mcL LAB HEMETOLOGY METHOD 11/19/2024 12:19 PM [facility] Blood Venous blood specimen / Unknown Venipuncture / Unknown 11/19/2024 10:48 AM EDT 11/19/2024 10:48 AM EDT us Marcy Kat MD LAB BLOOD ORDERABLES Final Resul t Performing Organization Address [facility]/ZIP Co de Phone Number [facility] [address] [place] [address], [place] [phone] * Vitamin D 25 hydroxy (11/19/2024 10:48 AM EDT) Pathologist [facility] Vit D, 25-Hydroxy 42.9 30.0 - 80.0 ng/mL LAB CHEMISTRY METHOD 11/19/2024 4:48 PM EDT [facility] Blood Venous blood specimen / Unknown Venipuncture / Unknown 11/19/2024 10:48 AM EDT 11/19/2024 10:48 AM EDT us Marcy Kat MD LAB BLOOD ORDERABLES Final Resul t Performing Organization Address [facility]/ZIP Co de Phone Number [facility] [address] [place] [address], [place] [phone] * Comprehensive metabolic panel (11/19/2024 10:48 AM EDT) [facility] Sodium 139 133 - 145 mmol/L LAB CHEMISTRY METHOD 11/19/2024 4:16 PM EDT [facility] Potassium 4.1 3.5 - 5.5 mmol/L LAB CHEMISTRY METHOD 11/19/2024 4:16 PM EDT [facility] Chloride 104 96 - 110 mmol/L LAB CHEMISTRY METHOD 11/19/2024 4:16 PM EDT [facility] CO2 30 21 - 32 mmol/L LAB CHEMISTRY METHOD 11/19/2024 4:16 PM EDT [facility] Anion Gap 5 3 - 11 LAB CHEMISTRY METHOD 11/19/2024 4:16 PM EDT [facility] Glucose 86 70 - 100 mg/dL LAB CHEMISTRY METHOD 11/19/2024 4:16 PM [facility] BUN 7 5 - 25 mg/dL LAB CHEMISTRY METHOD 11/19/2024 4:16 PM [facility] Creatinine 0.69 0.50 - 1.10 mg/dL LAB CHEMISTRY METHOD 11/19/2024 4:16 PM [facility] eGFR 103 >=60 mL/min/1. 73m2 LAB CHEMISTRY METHOD 11/19/2024 4:16 PM [facility] Comment:Calculation based on the Chronic Kidney Disease Epidemiology Collaboration (CKD-EPI) equation refit without adjustment for race. BUN/Creatinine Ratio 10.1 LAB CHEMISTRY METHOD 11/19/2024 4:16 PM [facility] Calcium 8.7 8.5 - 10.5 mg/dL LAB CHEMISTRY METHOD 11/19/2024 4:16 PM [facility] AST (SGOT) 17 10 - 42 unit/L LAB CHEMISTRY METHOD 11/19/2024 4:16 PM [facility] ALT (SGPT) 22 10 - 60 unit/L LAB CHEMISTRY METHOD 11/19/2024 4:16 PM [facility] Alkaline Phosphatase 106 42 - 121 unit/L LAB CHEMISTRY METHOD 11/19/2024 4:16 PM [facility] Total Protein 6.8 6.0 - 8.0 g/dL LAB CHEMISTRY METHOD 11/19/2024 4:16 PM [facility] Albumin 3.7 3.2 - 5.0 g/dL LAB CHEMISTRY METHOD 11/19/2024 4:16 PM [facility] Total Bilirubin 0.4 0.0 - 1.4 mg/dL LAB CHEMISTRY METHOD 11/19/2024 4:16 PM [facility] Blood Venous blood specimen / Unknown Venipuncture / Unknown 11/19/2024 10:48 AM EDT 11/19/2024 10:48 AM EDT us Marcy Kat MD LAB BLOOD ORDERABLES Final Resul t [facility] [address] [place] [address], [place] [phone] * MG Mammo Digital Screening w Yoan bilat (06/03/2024 5:28 PM EDT) Anatomical Region Laterality Modality Breast Bilateral Mammography 06/04/2024 4:24 PM EDT Impressions 06/04/2024 4:36 PM EDT 1. No mammographic evidence of malignancy 2. Scattered fibroglandular tissue BI-RADS CATEGORY: 2 - BENIGN RECOMMENDATION: Screening bilateral mammogram is recommended in 1 year. Mammo Location: [facility], [address] [place] [address], [id number], . -------- FINAL REPORT -------- Dictated By: Casimiro Winston Dictated Date: 06/04/2024 16:24 ET Assigned Physician: Casimiro Winston Reviewed and Electronically Signed By: Casimiro Winston Signed Date: 06/04/2024 16:36 ET Workstation ID: [id number] Transcribed By: Self Edit Transcribed Date: 06/04/2024 16:24 ET Narrative 06/04/2024 4:36 PM EDT A BILATERAL DIGITAL 3D SCREENING MAMMOGRAPHY HISTORY: Routine screening. Family history of breast cancer in sister. COMPARISON: Multiple priors dating back to 12/17/2019 Technique: Bilateral full field digital mammography (3D) was performed using standard CC and MLO projections CAD was [...] is recommended in 1 year. Mammo Location: [facility], [address] [place] [address], [id number], . -------- FINAL REPORT -------- Dictated By: Casimiro Winston Dictated Date: 06/04/2024 16:24 ET Assigned Physician: Casimiro Winston Reviewed and Electronically Signed By: Casimiro Winston Signed Date: 06/04/2024 16:36 ET Workstation ID: [id number] Transcribed By: Self Edit Transcribed Date: 06/04/2024 16:24 ET Marcy Kat MD IMG BI PROCEDURES Final Result * External Colonoscopy Report (11/13/2023 10:30 AM EDT) Anatomical Region Laterality Modality Endoscopy [facility] Provider GI~PROCEDURE ORDERABLES F inal Result * Cervical Cancer Screening: HPV (07/03/2020) Pathologist [facility] Cervical Cancer Screening: HPV Negative, Abstracted Result [facility] Historical Provider HEALTH MAINTENANCE Final Result * HIV Screening (06/13/2008) Pathologist [facility] HIV Screening Abstracted [facility] [place] [employer] HEALTH MAINTENANCE Final Result from Last 3 Months or Most Recently Relevant to Health Maintenance Insurance [employer] Care Teams Cue Worker Relationship Specialty Start Date End Date Marcy Kat MD [address] [place] [phone] PCP - General Internal Medicine 11/19/24
== END 2025-01-25 09:09 | disposition home or self-care (01) ==
LOC: HO.HWS 08:02
PROVIDERS: PCP Internal Medicine; Visit Provider Advanced Practice Midwife
DX: Z01.419 Encounter for gynecological examination (general) (routine) without abnormal findings (principal)
CPT/HCPCS: 99396; 99459